=== PATIENT | female | born 1940 | race Caucasian/White ===

== ENCOUNTER 2016-05-27 10:00 | Day surgery (SDC) | payer OTHER ==
[2016-05-27] MEDS ORDERED: DIAZEPAM 5 MG TAB PO ONE (10:05)
[2016-05-27] MEDS ORDERED: diphenhydrAMINE 25 MG CAP PO ONE (10:05)
[2016-05-27] MEDS ORDERED: NS 1,000 ML IV ONE (10:05)
[2016-05-27] MEDS ORDERED: ceFAZolin 2 GM/DEXTROSE 100 ML IV ONE (10:05)
[2016-05-27] MEDS ORDERED: BACITRACIN IRRIGATION/NS 50,000 UNITS/1,000 ML BTL IRR ONE (10:05)
--- NOTE | 2016-05-27 10:34 | CPEKG ---
Heart Rate: 70 RR Interval: 857 QRSD Interval: 120 QT Interval: 432 QTC Interval: 467 QRS [place]: -76 T Wave [place]: 92 EKG Severity - ABNORMAL ECG - EKG Impression: AFIB/FLUTTER AND VENTRICULAR-PACED RHYTHM Electronically Signed By: Juno Conroy 27-May-2016 15:46:39
[2016-05-27 10:50] LABS: % IMMATURE GRANULYOCYTES 0.2 % (0.0-1.1); ABSOLUTE IMMATURE GRANULOCYTES 0.02 10^3/uL (0.00-0.10); ADD DIFF? NO; ADD MORPH? NO; ADD SCAN? NO; ATYPICAL LYMPHOCYTE FLAG 10 (0-99); FRAGMENT RBC FLAG 0 (0-99); HEMATOCRIT 39.7 % (38.0-47.0); HEMOGLOBIN 13.3 g/dL (12.6-16.3); LEFT SHIFT FLG 0 (0-99); LIPEMIA HEMOLYSIS FLAG 80 (0-99); MEAN CELL HEMOGLOBIN 29.4 pg (27.9-34.1); MEAN CELL HEMOGLOBIN CONCENTR. 33.5 g/dL (32.4-36.7); MEAN CELL VOLUME 87.6 fL (81.5-99.8); MEAN PLATELET VOLUME 10.2 fL (8.7-11.7); PLATELET CLUMPS FLAG 0 (0-99); PLATELET COUNT 204 10^3/uL (150-400); RED BLOOD CELL COUNT 4.53 10^6/uL (4.18-5.33); RED CELL DISTRIBUTION WIDTH 14.2 % (11.5-15.2)
[2016-05-27 11:02] LABS: ANION GAP 12 mEq/L (8-16); CALCIUM 9.6 mg/dL (8.5-10.4); CARBON DIOXIDE 24 mEq/l (22-31); CHLORIDE 106 mEq/L (97-110); CREATININE 0.8 mg/dL (0.6-1.0); GLOMERULAR FILTRATION RATE > 60; GLUCOSE 111 mg/dL (70-100); POTASSIUM 4.4 mEq/L (3.5-5.2); SODIUM 142 mEq/L (134-144)
[2016-05-27 11:04] LABS: INR 1.75 (0.83-1.16); PROTIME(PATIENT) 20.5 SEC (12.0-15.0)
[2016-05-27] MEDS ORDERED: LIDOCAINE 1% 30 ML SDV ONE ×2 (11:58→12:23)
[2016-05-27] MEDS ORDERED: fentaNYL 100 MCG/2 ML INJ ONE ×2 (11:59→12:26)
[2016-05-27] MEDS ORDERED: BUPIVACAINE 0.5% 30 ML SDV ONE (11:59)
[2016-05-27] MEDS ORDERED: MIDAZOLAM 2 MG/2 ML VIAL ONE ×4 (11:59→13:23)
--- NOTE | 2016-05-27 13:17 | EPPROC ---
Electrophysiology Procedure Note: PROCEDURE PERFORMED: 1. V Pacemaker generator change INDICATION: Pacemaker generator at KARTHIK AF with 3rd degree AV block (prior AV node ablation) PROCEDURE NOTE: Patient presented to the cardiac catheterization laboratory in a fasting, postabsorptive state. EP RN administered sedation. Temporary pacemaker was placed via R femoral venous approach. The left infraclavicular area was prepped and draped in the usual sterile fashion. Lidocaine plus bupivacaine was used for local anesthesia. Using a combination of blunt and sharp dissection and electrocautery, the dissection was carried down to the prepectoral fascia and the existing pacemaker pocket was opened. The pacemaker generator was disconnected from the leads and the lead thresholds and impedance were checked. The pacemaker pocket was copiously irrigated with antibiotic solution. The pocket was again inspected for any bleeding. Atrial lead was capped and sutured to posterior aspect of pacemaker pocket. The V lead was attached to the pacemaker securely. The pacemaker was inserted into the pocket and secured in place with a nonabsorbable suture. The pacemaker pocket was closed in 3 layers with absorbable monocryl sutures and aric. Appropriate dressing was applied. The patient left the cardiac catheterization laboratory in stable condition. Serial Numbers: 1. Device SJM Assurity [id number] [id number] 2. Atrial Lead - CAPPED MDT 4076 [id number] 3. Ventricular Lead - ILT 4076-52 [id number] Stimulation Thresholds & Impedance Measurements: 1. Ventricular Lead R (temp pacer) 15 mV 0.6 V 0.5 ms 663 ohm Jaime Pacing Parameters 1. Pacing mode VVIR 2. Lower rate 70 ppm Upper sensor rate 120 ppm Patient Problems: Problems Problem Status Diagnosed Complete heart block Acute S/P CABG x 3 Acute S/P mitral valve replacement with bioprosthetic valve Acute CAD, multiple vessel Chronic COPD, mild Chronic Dyslipidemia Chronic H/O cardiac pacemaker Chronic H/O carotid endarterectomy Chronic Peripheral vascular disease Chronic Permanent atrial fibrillation Chronic Stented coronary artery Chronic
--- NOTE | 2016-05-27 14:04 | CPEKG ---
Heart Rate: 70 RR Interval: 857 QRSD Interval: 154 QT Interval: 480 QTC Interval: 519 QRS [place]: -76 T Wave [place]: 91 EKG Severity - ABNORMAL ECG - EKG Impression: Ventricularly paced rhythm. EKG Impression: LVH WITH SECONDARY REPOLARIZATION ABNORMALITY Electronically Signed By: Juno Conroy 27-May-2016 15:46:31
== END 2016-05-27 18:11 | disposition home or self-care (01) ==
LOC: FCATH 10:00
PROVIDERS: ATTEND Internal Medicine Cardiovascular Disease
PROC: 0JPT3PZ Removal of Cardiac Rhythm Related Device from Trunk Subcutaneous Tissue and Fascia, Percutaneous Approach (ICD-10-PCS; principal; 2016-05-27)
PROC: 0JH637Z Insertion of Cardiac Resynchronization Pacemaker Pulse Generator into Chest Subcutaneous Tissue and Fascia, Percutaneous Approach (ICD-10-PCS; principal; 2016-05-27)
DX: Z45.010 Encounter for checking and testing of cardiac pacemaker pulse generator [battery] (principal); I48.2 Chronic atrial fibrillation; J44.9 Chronic obstructive pulmonary disease, unspecified; I25.10 Atherosclerotic heart disease of native coronary artery without angina pectoris; I34.0 Nonrheumatic mitral (valve) insufficiency
CPT/HCPCS: C1786; J0690; J2250; J3010

== ENCOUNTER → 2016-12-13 | Outpatient (CLI) | payer OTHER | LOC: BHCLAF 11:30 | PROVIDERS: ATTEND Internal Medicine Cardiovascular Disease | DX: R09.89 Other specified symptoms and signs involving the circulatory and respiratory systems (principal) | CPT/HCPCS: 93880-PO ==

== ENCOUNTER → 2017-03-24 | Outpatient (CLI) | payer OTHER | LOC: BHCLAF 13:15 | PROVIDERS: ATTEND Internal Medicine Cardiovascular Disease | DX: Z95.2 Presence of prosthetic heart valve (principal) | CPT/HCPCS: 93306-PO ==